=== PATIENT | male | born 2005 | race Caucasian/White ===

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

== ENCOUNTER → 2023-10-01 | Outpatient (CLI) | payer OTHER ==
[2023-10-01 14:41] LABS: BASO % 0.5 % (0.0-1.0); EOS # 0.1 10*3/uL (0.0-0.4); EOS % 0.9 % (1.0-4.0); HEMATOCRIT 46.6 % (42.0-52.0); LYMPH # 2.6 10*3/uL (1.3-4.4); LYMPH % 39.7 % (27.0-41.0); MEAN CELL VOLUME 85.5 fl (80.0-94.0); MEAN CORPUSCULAR HGB 29.7 pg (27.0-31.0); MEAN CORPUSCULAR HGB CONC 34.8 g/dl (33.0-37.0); MEAN PLATELET VOLUME 11.1 fl (9.6-12.3); MONO # 0.4 10*3/uL (0.1-1.0); MONO % 5.3 % (3.0-9.0); NEUT # 3.5 10*3/uL (2.3-7.9); NEUT % 53.4 % (47.0-73.0); PLATELET COUNT AUTOMATED 179 10*3/uL (130-400); RED BLOOD COUNT 5.45 10*6/uL (4.50-5.90); RED CELL DISTRI WIDTH 13.1 % (0-14.5); RETICULOCYTE % 0.97 % (0.50-2.50); WHITE BLOOD COUNT 6.6 10*3/uL (4.8-10.8)
[2023-10-01 15:18] LABS: ALKALINE PHOSPHATASE 94 U/L (46-116); BUN 13 mg/dl (9-23); CHLORIDE 109 mmol/L (98-107); CHOLESTEROL 152 mg/dL (<200); GAMMA GLUTAMYL TRANSPEPTIDASE 27 U/L (0-73); LDL CHOLESTEROL 81 mg/dL (9-159); POTASSIUM 4.1 mmol/L (3.4-5.1); SGPT/ALT 19 U/L (5-49); T3 UPTAKE 31.4 % (22.4-36.7); THYROXINE (T4) TOTAL 5.5 ug/dl (4.5-10.9); TOTAL PROTEIN 7.4 gm/dL (6.0-8.0); TRIGLYCERIDES 134 mg/dl (<150); URIC ACID 4.6 mg/dL (3.7-9.2)
[2023-10-01 15:22] LABS: VITAMIN D, 25-HYDROXY 37.1 ng/mL (30-100)
[2023-10-01 15:51] LABS: BILIRUBIN Negative (Negative); BLOOD Negative (Negative); CLARITY Clear (Clear); COLOR Yellow (Yellow); GLUCOSE Negative (Negative); KETONE Negative (Negative); LEUKO ESTERASE Negative (Negative); NITRITE Negative (Negative); SPECIFIC GRAVITY 1.015 (1.001-1.030); UROBILINOGEN 0.2 E.U./dl (0.0-1.0)
[2023-10-02 12:06] LABS: ANTI-DSDNA ANTIBODIES 2 IU/mL (0-9)
== END | disposition home or self-care (01) ==
LOC: LAB 14:08
PROVIDERS: ATTEND Family Medicine
DX: E78.5 Hyperlipidemia, unspecified (principal); E55.9 Vitamin D deficiency, unspecified; R79.89 Other specified abnormal findings of blood chemistry; R53.83 Other fatigue; R74.8 Abnormal levels of other serum enzymes

== ENCOUNTER → 2024-06-21 | Outpatient (CLI) | payer OTHER | END | disposition home or self-care (01) | LOC: US 00:24 | PROVIDERS: ATTEND Family Medicine | DX: R10.11 Right upper quadrant pain (principal) ==

== ENCOUNTER → 2024-06-27 | Outpatient (CLI) | payer OTHER ==
[~2024-06-27] MED LIST changes: +IOHEXOL 300 MG/ML 100 ML VIAL IV ONE
== END | disposition home or self-care (01) ==
LOC: CT 13:00
PROVIDERS: ATTEND Family Medicine
DX: R93.5 Abnormal findings on diagnostic imaging of other abdominal regions, including retroperitoneum (principal)

== ENCOUNTER 2024-12-14 11:02 | Emergency (ER) | payer OTHER ==
[~2024-12-14] VITALS: Ht 180.3 cm; Wt 104.3 kg
[~2024-12-14 11:02] MED LIST changes: -IOHEXOL 300 MG/ML 100 ML VIAL IV ONE
[2024-12-14 11:42] LABS: BASO % 0.3 % (0.0-1.0); EOS % 0.7 % (1.0-4.0); HEMATOCRIT 42.1 % (42.0-52.0); MEAN CELL VOLUME 87.2 fl (80.0-94.0); MEAN CORPUSCULAR HGB CONC 33.3 g/dl (33.0-37.0); MEAN PLATELET VOLUME 11.2 fl (9.6-12.3); MONO # 0.3 10*3/uL (0.1-1.0); MONO % 5.6 % (3.0-9.0); NEUT # 3.7 10*3/uL (2.3-7.9); NEUT % 61.9 % (47.0-73.0); PLATELET COUNT AUTOMATED 183 10*3/uL (130-400); RED BLOOD COUNT 4.83 10*6/uL (4.50-5.90); RED CELL DISTRI WIDTH 13.2 % (0-14.5)
[2024-12-14 12:17] LABS: ALKALINE PHOSPHATASE 86 U/L (46-116); BUN 12 mg/dl (9-23); CHLORIDE 107 mmol/L (98-107); LIPASE 30 U/L (12-53); SGPT/ALT 9 U/L (5-49); TOTAL PROTEIN 7.4 gm/dL (6.0-8.0)
== END 2024-12-14 12:50 | disposition home or self-care (01) ==
LOC: ED 11:02
PROVIDERS: Nurse Practitioner Family
DX: R55 Syncope and collapse (principal); Z20.822 Contact with and (suspected) exposure to COVID-19; R61 Generalized hyperhidrosis; E11.9 Type 2 diabetes mellitus without complications; I10 Essential (primary) hypertension; J45.909 Unspecified asthma, uncomplicated; Z98.890 Other specified postprocedural states

== ENCOUNTER → 2025-02-22 | Outpatient (CLI) | payer OTHER | END | disposition home or self-care (01) | LOC: US 13:34 | PROVIDERS: ATTEND Family Medicine | DX: M25.561 Pain in right knee (principal) ==

== ENCOUNTER 2025-05-20 20:01 | Emergency (ER) | payer OTHER ==
[~2025-05-20] VITALS: Ht 180.3 cm; Wt 108.9 kg
[2025-05-20] MEDS ORDERED: Acetaminophen/Hydrocodone 5 MG/325 MG TABLET PO ONE (20:25)
[2025-05-20] MEDS ORDERED: Ondansetron Hydrochloride 4 MG TAB SL ONE (20:25)
[2025-05-20] MEDS ORDERED: PENICILLIN V POTASSIUM 500 MG TAB PO ONE (20:25)
[2025-05-20] MEDS ORDERED: PENICILLIN VK500 MG PO (20:26)
== END 2025-05-20 20:35 | disposition home or self-care (01) ==
LOC: ED 20:01
DX: K02.9 Dental caries, unspecified (principal)

== ENCOUNTER 2025-06-22 13:57 | Emergency (ER) | payer OTHER ==
[~2025-06-22] VITALS: Ht 177.8 cm; Wt 106.6 kg
[~2025-06-22 13:57] MED LIST changes: +PENICILLIN VK500 MG PO
[2025-06-22] MEDS ORDERED: BUSPAR15 MG PO (14:15)
[2025-06-22] MEDS ORDERED: MIRTAZAPINE15 M2 PO (14:15)
[2025-06-22] MEDS ORDERED: MELOXICAM15 MG PO (17:13)
== END 2025-06-22 17:26 | disposition home or self-care (01) ==
LOC: ED 13:57
DX: M25.561 Pain in right knee (principal); M25.562 Pain in left knee; J45.909 Unspecified asthma, uncomplicated; Z79.899 Other long term (current) drug therapy

== ENCOUNTER 2025-08-10 18:40 | Emergency (ER) | payer OTHER ==
[~2025-08-10] VITALS: Ht 180.3 cm; Wt 111.1 kg
[~2025-08-10 18:40] MED LIST changes: +BUSPAR15 MG PO; +MELOXICAM15 MG PO; +MIRTAZAPINE15 M2 PO
[2025-08-10] MEDS ORDERED: Ondansetron Hydrochloride 4 MG TAB SL ONE (19:05)
[2025-08-10] MEDS ORDERED: Bacitracin Zinc 14 GM TUBE T ONE (19:05)
[2025-08-10] MEDS ORDERED: Acetaminophen/Hydrocodone 5 MG/325 MG TABLET PO ONE (19:05)
[2025-08-10] MEDS ORDERED: HYDROCODONE-AC1 EAC1 PO (20:51)
[2025-08-10] MEDS ORDERED: SEPTDS PO (20:51)
== END 2025-08-10 20:56 | disposition home or self-care (01) ==
LOC: ED 18:40
DX: S30.813A Abrasion of scrotum and testes, initial encounter (principal); Z79.899 Other long term (current) drug therapy; W22.8XXA Striking against or struck by other objects, initial encounter; Y93.89 Activity, other specified; Y92.89 Other specified places as the place of occurrence of the external cause; Y99.8 Other external cause status